=== PATIENT | male | born 1980 | race Caucasian/White ===

== ENCOUNTER 2021-08-03 20:05 | Emergency (ER) | payer BC ==
[2021-08-03 22:22] VITALS: BP_SYST 145
[2021-08-03 23:07] LABS: BASOPHILS % (AUTO) 0.6 % (0.0-2.0); EOSINOPHILS # (AUTO) 0.1 K/uL (0.0-0.4); EOSINOPHILS % (AUTO) 1.3 % (0.0-4.0); HEMATOCRIT 41.9 % (36-54); HEMOGLOBIN 14.4 g/dL (14.0-18.0); LYMPHOCYTES # (AUTO) 1.9 K/uL (1.0-5.5); LYMPHOCYTES % (AUTO) 25.1 % (20.5-51.5); MEAN CORPUSCULAR HEMOGLOBIN 32 pg (27-31); MEAN CORPUSCULAR HGB CONC 34 % (32-36); MEAN CORPUSCULAR VOLUME 92 fL (79.0-98.0); MONOCYTES # (AUTO) 0.8 K/uL (0.0-1.0); MONOCYTES % (AUTO) 11.1 % (1.7-9.3); NEUTROPHILS # (AUTO) 4.6 K/uL (1.8-7.7); NEUTROPHILS % (AUTO) 61.9 % (40.0-70.0); PLATELET COUNT (AUTO) 329 K/uL (130-430); RED BLOOD CELL COUNT(AUTO) 4.58 MIL/uL (4.2-6.2); WHITE BLOOD COUNT (AUTO) 7.4 K/uL (4.8-10.8)
[2021-08-03 23:16] LABS: CALCIUM 8.1 mg/dL (8.4-11.0); CREATININE 1.15 mg/dL (0.55-1.30); POTASSIUM 3.9 mmol/L (3.5-5.1)
[2021-08-03 23:25] LABS: TOTAL BILIRUBIN 0.4 mg/dL (0.0-1.0)
[2021-08-04 00:57] VITALS: BP_SYST 126
[2021-08-04] MEDS ORDERED: ACET325T53 PO (01:00)
[2021-08-04] MEDS ORDERED: LEVO750T45 PO (01:03)
[2021-08-04] MEDS ORDERED: levoFLOXacin 500 MG TABLET PO ONE (01:15)
[2021-08-06 22:06] LABS: CHLAMYDIA TRACHOMATIS NAA Negative (Negative); NEISSERIA GONORRHOEAE NAA Negative (Negative)
== END 2021-08-04 00:53 | disposition home or self-care (01) ==
LOC: SED 20:05
DX: R07.89 Other chest pain (principal); N43.3 Hydrocele, unspecified; N45.1 Epididymitis; N44.2 Benign cyst of testis; R03.0 Elevated blood-pressure reading, without diagnosis of hypertension
CPT/HCPCS: 36415; 71045; 76870-TC; 80053; 81002; 84484; 85025; 87491; 87591; 93005; 99285